=== PATIENT | female | born 1965 | race Two or more races ===

== ENCOUNTER → 2022-03-10 | Emergency (ER) | payer OTHER ==
[~2022-03-10] VITALS: Ht 172.7 cm; Wt 83.9 kg
[~2022-03-10] MED LIST: ASPirin 81 mg TAB PO ONE
[2022-03-10 10:00] VITALS: BP 128/87
[2022-03-10 10:28] LABS: Basophils # (auto) 0.1 10 ^3/uL (0-0.2); Basophils % (auto) 2.9 % (0.0-2.0); Eosinophils # (auto) 0.1 10 ^3/uL (0-0.8); Eosinophils % (auto) 1.3 % (0.0-7.0); Hematocrit 40.6 % (36.0-46.0); Hemoglobin 13.8 g/dL (12.2-16.2); Lymphocytes # (auto) 1.5 10 ^3/uL (0.4-5.4); Lymphocytes % (auto) 30.8 % (10.0-50.0); Mean Corpuscular Hemoglobin 29.2 pg (28.0-32.0); Mean Corpuscular Volume 85.8 fL (80.0-100.0); Monocytes # (auto) 0.6 10 ^3/uL (0-1.3); Monocytes % (auto) 12.3 % (0.0-12.0); Neutrophils # (auto) 2.6 10 ^3/uL (1.6-8.6); Neutrophils % (auto) 52.7 % (37.0-80.0); Red Blood Cells 4.73 10^6/uL (4.0-5.20); Red Cell Distribution Width 14.1 % (11.8-14.3); White Blood Cell 4.9 10^3/uL (4.4-10.8)
[2022-03-10 10:47] LABS: Albumin 3.9 g/dL (3.4-5.0); Calcium 9.2 mg/dL (8.5-10.1); Potassium 4.1 mmol/L (3.5-5.1)
[2022-03-10 10:51] LABS: BUN/Creatinine Ratio 9.3; Bilirubin, Total 0.5 mg/dL (0.2-1.0); Total Protein 8.2 g/dL (6.4-8.2)
== END | disposition home or self-care (01) ==
LOC: ER 10:00
DX: R07.89 Other chest pain (principal); I10 Essential (primary) hypertension
CPT/HCPCS: 36415; 80053; 84484; 85025; 93005

== ENCOUNTER → 2022-06-23 | Outpatient (CLI) | payer OTHER ==
[2022-06-23 10:26] LABS: Basophils # (auto) 0.1 10 ^3/uL (0-0.2); Basophils % (auto) 1.1 % (0.0-2.0); Eosinophils # (auto) 0.2 10 ^3/uL (0-0.8); Eosinophils % (auto) 3.5 % (0.0-7.0); Hematocrit 39.1 % (36.0-46.0); Hemoglobin 13.2 g/dL (12.2-16.2); Lymphocytes # (auto) 1.9 10 ^3/uL (0.4-5.4); Mean Corpuscular Hemoglobin 29.1 pg (28.0-32.0); Mean Corpuscular Hgb Conc. 33.8 g/dL (32.0-36.0); Monocytes # (auto) 0.4 10 ^3/uL (0-1.3); Monocytes % (auto) 6.3 % (0.0-12.0); Neutrophils # (auto) 4.1 10 ^3/uL (1.6-8.6); Neutrophils % (auto) 61.1 % (37.0-80.0); Red Blood Cells 4.54 10^6/uL (4.0-5.20); Red Cell Distribution Width 13.3 % (11.8-14.3); White Blood Cell 6.7 10^3/uL (4.4-10.8)
[2022-06-23 10:53] LABS: Albumin 3.9 g/dL (3.4-5.0); Calcium 9.5 mg/dL (8.5-10.1); Potassium 5.3 mmol/L (3.5-5.1)
[2022-06-23 10:58] LABS: BUN/Creatinine Ratio 23.5; Bilirubin, Total 0.4 mg/dL (0.2-1.0); Total Protein 7.5 g/dL (6.4-8.2)
== END | disposition home or self-care (01) ==
LOC: LAB 09:58
PROVIDERS: ATTEND Nurse Practitioner Family
DX: Z00.00 Encounter for general adult medical examination without abnormal findings (principal); I10 Essential (primary) hypertension; R73.9 Hyperglycemia, unspecified; E78.00 Pure hypercholesterolemia, unspecified
CPT/HCPCS: 36415; 80053; 80061; 83036; 84443; 85025

== ENCOUNTER 2023-03-09 01:56 | Emergency (ER) | payer SELFPAY ==
[~2023-03-09] VITALS: Ht 182.9 cm; Wt 100.0 kg
[2023-03-09] MEDS ORDERED: DONNATAL 5ml ORAL Elix (BELLADONNA ALK-PHENOBARB) PO ONE (02:45)
[2023-03-09] MEDS ORDERED: LIDOCAINE VISCOUS 2% 15ML UD PO ONE (02:45)
[2023-03-09] MEDS ORDERED: MAALOX PLUS or MAALOX 30 ML PO ONE (02:45)
[2023-03-09 03:24] LABS: Basophils # (auto) 0.1 10 ^3/uL (0-0.2); Basophils % (auto) 0.4 % (0.0-2.0); Eosinophils # (auto) 0.1 10 ^3/uL (0-0.8); Eosinophils % (auto) 0.5 % (0.0-7.0); Hematocrit 40.8 % (36.0-46.0); Hemoglobin 13.7 g/dL (12.2-16.2); Lymphocytes # (auto) 1.5 10 ^3/uL (0.4-5.4); Lymphocytes % (auto) 11.7 % (10.0-50.0); Mean Corpuscular Hemoglobin 29.2 pg (28.0-32.0); Mean Corpuscular Hgb Conc. 33.6 g/dL (32.0-36.0); Mean Corpuscular Volume 86.9 fL (80.0-100.0); Monocytes # (auto) 0.5 10 ^3/uL (0-1.3); Monocytes % (auto) 4.4 % (0.0-12.0); Neutrophils # (auto) 10.3 10 ^3/uL (1.6-8.6); Nucleated Red Blood Cells % 0.3 %; Red Cell Distribution Width 13.5 % (11.8-14.3); White Blood Cell 12.4 10^3/uL (4.4-10.8)
[2023-03-09 03:42] LABS: Albumin 3.9 g/dL (3.4-5.0); Calcium 8.5 mg/dL (8.5-10.1); Potassium 3.6 mmol/L (3.5-5.1)
[2023-03-09 03:45] LABS: BUN/Creatinine Ratio 25.7 (10.0-20.0); Bilirubin, Total 0.3 mg/dL (0.2-1.0); Total Protein 7.9 g/dL (6.4-8.2)
[2023-03-09 04:12] VITALS: BP 132/82
== END 2023-03-09 05:07 | disposition left against medical advice (07) ==
LOC: EDBD 01:56 → ER 01:56 → EDUNIT# 01:56 → ER 05:07
DX: K57.90 Diverticulosis of intestine, part unspecified, without perforation or abscess without bleeding (principal); I10 Essential (primary) hypertension; Z98.890 Other specified postprocedural states; Z41.1 Encounter for cosmetic surgery
CPT/HCPCS: 36415; 71045; 74176; 80053; 83690; 84484; 85025; 93005

== ENCOUNTER 2023-03-25 13:38 | Emergency (ER) | payer OTHER ==
[~2023-03-25] VITALS: Ht 172.7 cm; Wt 88.3 kg
[2023-03-25 14:15] VITALS: BP 163/100
[2023-03-25] MEDS ORDERED: VALSARTAN 80 MG TAB PO ONE ×2 (14:30→14:45)
[2023-03-25] MEDS ORDERED: VALS1TAB58 PO ×2 (14:38→14:39)
== END 2023-03-25 14:52 | disposition home or self-care (01) ==
LOC: ER 13:39
DX: I10 Essential (primary) hypertension (principal); Z76.0 Encounter for issue of repeat prescription; Z88.2 Allergy status to sulfonamides; Z98.890 Other specified postprocedural states

== ENCOUNTER → 2023-04-05 | Outpatient (CLI) | payer OTHER ==
[~2023-04-05] MED LIST changes: -ASPirin 81 mg TAB PO ONE; +VALS1TAB58 PO
[2023-04-05 12:15] LABS: Basophils # (auto) 0.1 10 ^3/uL (0-0.2); Basophils % (auto) 0.8 % (0.0-2.0); Eosinophils # (auto) 0.2 10 ^3/uL (0-0.8); Eosinophils % (auto) 2.3 % (0.0-7.0); Hematocrit 43.9 % (36.0-46.0); Hemoglobin 14.6 g/dL (12.2-16.2); Lymphocytes # (auto) 1.5 10 ^3/uL (0.4-5.4); Lymphocytes % (auto) 19.9 % (10.0-50.0); Mean Corpuscular Hemoglobin 29.2 pg (28.0-32.0); Mean Corpuscular Hgb Conc. 33.3 g/dL (32.0-36.0); Mean Corpuscular Volume 87.7 fL (80.0-100.0); Monocytes # (auto) 0.6 10 ^3/uL (0-1.3); Monocytes % (auto) 8.2 % (0.0-12.0); Neutrophils # (auto) 5.3 10 ^3/uL (1.6-8.6); Neutrophils % (auto) 68.8 % (37.0-80.0); Red Cell Distribution Width 14.3 % (11.8-14.3); White Blood Cell 7.6 10^3/uL (4.4-10.8)
[2023-04-05 13:24] LABS: Albumin 3.7 g/dL (3.4-5.0); Calcium 8.9 mg/dL (8.5-10.1); Potassium 4.1 mmol/L (3.5-5.1)
[2023-04-05 20:06] LABS: BUN/Creatinine Ratio 15.1 (10.0-20.0); Bilirubin, Total 0.4 mg/dL (0.2-1.0); Total Protein 7.9 g/dL (6.4-8.2)
== END | disposition home or self-care (01) ==
LOC: LAB 11:43
DX: Z00.01 Encounter for general adult medical examination with abnormal findings (principal); R73.9 Hyperglycemia, unspecified; E78.5 Hyperlipidemia, unspecified; I10 Essential (primary) hypertension; E66.3 Overweight
CPT/HCPCS: 36415; 80053; 80061; 82274; 83036; 84439; 84443; 85025

== ENCOUNTER 2024-10-31 17:57 | Emergency (ER) | payer SELFPAY ==
[~2024-10-31] VITALS: Ht 172.7 cm; Wt 85.9 kg
--- NOTE | 2024-10-31 18:47 | ED.PDOC ---
HPI Comments HPI: Poor Historian. 58-year-old female presents to emergency department for evaluation of hyp ertensive urgency. Patient denies any recent history of hypertension. She used to be on hypertension medications but is no longer needing it. However this past she started developing headache nausea vomiting shortness of breath. She checked her blood pressure at that time and it was 188/108. Patient has been having these symptoms for approximately a week but did not come to the hospital due to insurance plans change. Today at 4:00 p.m. she took a friend's medication clonidine once. Past Medical History: Borderline hyperlipidemia. Remote history of hypertension. Past Surgical History: Knee surgery, foot surgery, bunion, hernia repair Initial Vital Signs: Temp: 97.2F HR: 104 RR: 18 BP: 145/94 SpO2: 96% REVIEW OF SYSTEMS: CONSTITUTIONAL: Denies acute: fever, diaphoresis, chills, HEAD: Denies acute: photophobia Eyes: Denies acute: Double vision, vision loss, eye pain, eye discharge. EARS: Denies acute: tinnitus, hearing loss, ear discharge, ear pain, THROAT: Denies acute: sore throat, swelling, difficulty swallowing , pain with swallowing, change in voice. NECK: Denies acute: neck pain, neck swelling, stiff neck. HEART: Denies acute : chest pain, palpitations, LUNGS: Denies acute: wheezing, cough, hemoptysis ABDOMEN: Denies acute: abdominal pain, diarrhea, melena , hematemesis, hematochezia SKIN: Denies acute: rash, redness, lesions, itchiness. EXTREMITIES: Denies acute: calf pain, numbness, tingling, weakness, denies pain in extremity. Denies acute: Low back pain. Neuro: Denies acute: focal neurological deficit, motor or sensory focal neurological deficit, tremors, seizure like activity, confusion, dizziness, change in mental status, loss of bowel or bladder function, cauda equina like symptoms. : Denies acute: dysuria, hematuria, flank pain, increase in urinary frequency. PSYCH: Denies acute: hallucination, suicidal ideation, homicidal ideation. FEMALE: Denies acute: abnormal vaginal bleeding, foul odor, unusual discharge. PHYSICAL EXAM: General: no acute distress, awake and alert. Head: normocephalic, atraumatic. Neck: supple, trachea is midline, no swelling. Throat: Normal phonation. Eyes:, no erythema, no purulent discharge, no proptosis, no icterus. Heart: regular rate, regular rhythm, no significant murmur appreciated. Lungs: no apparent respiratory distress, Able to speak in full sentences. No wheezing, no rhonchi, no crackles. No stridors Clear to auscultation bilaterally. Abdomen: non tender to palpation, non distended, soft, no guarding, no rebound, + bowel sounds. Neuro: Awake, Alert, oriented to name, self, situation, follows commands GCS=15. Speech is normal. Skin: no petechia, no purpura, no cyanosis, non-pale, not jaundice. Lower extremities: --no - Pitting edema no deformity, no focal swelling, no calf TTP. Makes eye contact. moves all four extremities. Face: no apparent facial droop. Ambulating in the ED independently. Time Seen by MD: 18:40 Reviewed Notes: Nurses Notes, Medications, Allergies Allergies: Coded Allergies: Sulfa Antibiotics (Verified Allergy, Unknown, HIVES/ITCHING, 03/09/23) Home Meds Active Scripts Valsartan (Valsartan) 160 Mg Tab, 1 TAB PO DAILY, #14 TAB Prov:CÉSAR JACKSON 03/25/23 Information Source: Patient Past Medical History PAST MEDICAL HISTORY: HTN Surgical History: Hernia Repair LEGAL BILLING SPECIALIST History: No Pertinent LEGAL BILLING SPECIALIST History Family History Family History: Reviewed,noncontributory to illness Social History Smoker: Non-Smoker Alcohol: Denies ETOH Use Drugs: Denies Drug Use Lives In: Home Was a procedure done? Was a procedure done?: No CP Differential Dx Differential Diagnosis: N/A Differential Diagnosis: Other (DDX include renal disease, thyroid disease, electrolyte abnormality, increased salt intake, medications non-compliance, undiagnosed HTN, Hypertensive crisis, hypertensive urgency., drug toxicity.) X-Ray, Labs, Meds, VS Vital Signs Date Time Temp Pulse Resp B/P (MAP) Pulse Ox O2 Delivery O2 Flow Rate FiO2 11/01/24 01:28 98.5 90 12 147/97 (114) 95 98.5 10/31/24 21:45 88 16 147/98 (114) 98 10/31/24 20:18 142/87 10/31/24 20:11 98.7 95 18 142/87 (105) 98 98.7 10/31/24 20:11 95 18 98 Room Air* 0 21 10/31/24 18:20 97.2 104 18 145/94 (111) 96 Lab Test 10/31/24 21:30 10/31/24 19:55 10/31/24 19:09 10/31/24 18:45 Range/Units Influenza Type A Antigen Positive Negative Influenza Type B Antigen Negative Negative SARS-CoV-2 Antigen (Rapid) Negative NEGATIVE Troponin I High Sensitivity < 3 L < 3 L </=34 ng/L White Blood Count 8.5 4.4-10.8 10^3/uL Red Blood Count 4.81 4.0-5.20 10^6/uL Hemoglobin 14.8 12.2-16.2 g/dL Hematocrit 42.9 36.0-46.0 % Mean Corpuscular Volume 89.2 80.0-100.0 fL Mean Corpuscular Hemoglobin 30.8 28.0-32.0 pg Mean Corpuscular Hemoglobin Concent 34.6 32.0-36.0 g/dL Red Cell Distribution Width 13.3 11.8-14.3 % Platelet Count 350 140-450 10^3/uL Mean Platelet Volume 6.6 L 6.9-10.8 fL Neutrophils (%) (Auto) 87.1 H 37.0-80.0 % Lymphocytes (%) (Auto) 3.5 L 10.0-50.0 % Monocytes (%) (Auto) 8.4 0.0-12.0 % Eosinophils (%) (Auto) 0.2 0.0-7.0 % Basophils (%) (Auto) 0.8 0.0-2.0 % Neutrophils # (Auto) 7.4 1.6-8.6 10 ^3/uL Lymphocytes # (Auto) 0.3 L 0.4-5.4 10 ^3/uL Monocytes # (Auto) 0.7 0-1.3 10 ^3/uL Eosinophils # (Auto) 0 0-0.8 10 ^3/uL Basophils # (Auto) 0.1 0-0.2 10 ^3/uL Nucleated Red Blood Cells 0.1 % Sodium Level 131 L 136-145 mmol/L Potassium Level 4.3 3.5-5.1 mmol/L Chloride Level 97 L 98-107 mmol/L Carbon Dioxide Level 24 20-31 mmol/L Anion Gap 10 5-15 Blood Urea Nitrogen 12 9-23 mg/dL Creatinine 0.74 0.550-1.02 mg/dL Glomerular Filtration Rate Calc 94 >90 mL/min BUN/Creatinine Ratio 16.2 10.0-20.0 Serum Glucose 138 H 74-106 mg/dL Lactic Acid Level 1.8 0.4-2.0 mmol/L Calcium Level 10.3 8.7-10.4 mg/dL Total Bilirubin 0.5 0.2-1.0 mg/dL Aspartate Amino Transferase (AST) 19 13-40 U/L Alanine Aminotransferase (ALT) 20 7-40 U/L Alkaline Phosphatase 73 46-116 U/L B-Type Natriuretic Peptide 38.56 0-100 pg/mL Total Protein 7.7 5.7-8.2 g/dL Albumin 4.8 3.2-4.8 g/dL Lipase 26 12-53 U/L Urine Color Yellow Yellow Urine Clarity Clear Clear Urine pH 5.5 5.0-9.0 Urine Specific [place] 1.035 1.001-1.035 Urine Protein 1+ H Negative Urine Ketones 2+ H Negative Urine Blood 2+ H Negative /uL Urine Nitrite Negative Negative Urine Bilirubin Negative Negative Urine Urobilinogen Normal Negative mg/dL Urine Leukocyte Esterase 1+ Negative /uL Urine RBC 19 0 - 4 /hpf Urine Microscopic WBC 4 0-5 /HPF Urine Squamous Epithelial Cells Few <5 /hpf Urine Bacteria None seen None Seen /hpf Urine Mucus Moderate None Seen Urine Glucose Normal Normal mg/dL Current Medications Medications (Trade) Dose Ordered Sig/[facility] Route Start Time Stop Time Status Last Admin Aspirin 325 mg ONCE ONCE PO 10/31/24 18:45 10/31/24 18:46 DC 10/31/24 20:19 Ondansetron HCl (Zofran) 8 mg ONCE ONCE IV 10/31/24 18:45 10/31/24 18:46 DC 10/31/24 20:19 Ceftriaxone Sodium 50 ml @ 100 mls/hr ONCE ONCE IV 10/31/24 20:45 10/31/24 21:14 DC 10/31/24 21:46 PATIENT: FRANSISCA BAR ACCT: [id number] UNIT: [id number] : 1965 LOC: ER ROOM / BED: / AGE / SEX: 58 / F ADM STATUS: REG ER SERVICE [id number] ORDERING PHYSICIAN: VANESSA LEMOS DO PROCEDURE(s): HWOCT - HEAD WITHOUT CONTRAST REASON: sob/htn/ ORDER NUMBER(s): [id number], ACCESSION NUMBER(s): [id number] CLINICAL HISTORY: sob/htn/ TECHNIQUE: Helical imaging carried out from skull base to vertex without intravenous contrast. This exam was performed according to our departmental dose optimization program. Up-to-date CT equipment and radiation dose reduction techniques are utilized as appropriate. COMPARISON: None FINDINGS: The ventricles and subarachnoid spaces are normal in size and configuration. There is no midline shift or mass effect. The melendez white matter interfaces are maintained. The basal cisterns are patent. There is no evidence of acute intra cranial hemorrhage or extra-axial fluid collection. The mastoid air cells are well-aerated. There is trace paranasal sinus mucosal thickening IMPRESSION: No acute intracranial abnormality. ATED BY: ETD RAMOS MD DICTATED DATE/TIME: 10/31/241903 SIGNED BY: TED RAMOS MD SIGNED DATE/TIME: 10/31/241903 Images Reviewed?: Images reviewed and evaluated by me Time of 1ST Reevaluation: 23:24 Reevaluation 1ST: Improved Time of 2ND Reevaluation: 01:56 Reevaluation 2ND: Improved Patient Education/Counseling: Diagnosis, Treatment Family Education/Counseling: Other Comments Patient is outside the window for Tamiflu. Patient presented with the above HPI.--viral symptoms and hypertensive urgency--workup was initiated. patient was found with the above mentioned diagnosis. the following medications were ordered: please refer to order lists of meds and tests obtained by myself Dr. Lemos. Patient ED course and VS have been stabilized. Patient has been reassessed in the ED and remained in a stable condition. Pertinent incidental findings were discussed with the patient and/or family. Patient/family voices understanding and is agreeable with plan. Patient has been observed in the ED adequate length of time to insure improvement/stability. Escalation of care considered: Consideration of escalation to observation or admission Patient was DISCHARGED home in a stable condition. All the reports of any imaging studies that were ordered by myself were reviewed by myself. Departure 1 Departure Time of Disposition: 23:22 Impression: Primary Impression: Influenza A virus present Additional Impressions: Hypertensive urgency Urinary tract infection Disposition: HOME / SELF CARE / HOMELESS Condition: Stable Additional Instructions: Additional discharge instructions: You MUST follow-up with your primary care/family doctor in 1 to 2 days. If you are unable to see your primary care/family doctor, please return to our emergency room for re-assessment and re-evaluation in 1 to 2 days. Return to the emergency room here in our facility or to the nearest ER [facility] if your symptoms change or worsen. CONSULTATIONS: you MUST Follow-up for consultation as soon as possible with: cardiology in 1-2 days. Please call for appointment. You MUST call the consultants office yourself to make an appointment. You may need to arrange that through your insurance and/or your primary/family doctor. If you are unable to see the furniture sales consultant in 1 to 2 days, you must return to our emergency room (or any other ER of your choice) for re-assessment and re- evaluation. Adequate fluid hydration. Monitor blood pressure at home at least 3 times a day. You stated that you have lisinopril from previous treatment. You may restart that. You are contagious. Exercise good hygiene. Wear a mask. Discharged With: Self Critical Care Note Critical Care Time?: No Heart Score Heart Score: Heart Score Response (Comments) Value History Slightly Suspicious 0 EKG Normal 0 Age 45-64 1 Risk Factors 1 or 2 risk factors 1 Troponin Normal limit 0 Total 2 I personally scribed for VANESSA LEMOS DO ([email or web address]) on 10/31/24 at 20:23. Electronically submitted by Leeroy Grande ([email or web address]). VANESSA LEMOS DO Oct 31, 2024 18:47
--- NOTE | 2024-10-31 19:05 | DVH ---
CHEST RADIOGRAPH Indication: sob/htn/ Technique: Single frontal view of the chest was obtained COMPARISON: XY CHEST PORTABLE on DOS: 03/09/23 FINDINGS: Lines and Tubes: None Lungs: Clear Pleura: No effusion. No pneumothorax. Cardiomediastinal contours: Unremarkable Bones: Unremarkable IMPRESSION: No acute disease.
[2024-10-31 19:06] LABS: Urine Bacteria None Seen /hpf (None Seen)
--- NOTE | 2024-10-31 19:07 | DVH ---
CLINICAL HISTORY: sob/htn/ TECHNIQUE: Helical imaging carried out from skull base to vertex without intravenous contrast. This e xam was performed according to our departmental dose optimization program. Up-to-date CT equipment an d radiation dose reduction techniques are utilized as appropriate. COMPARISON: None FINDINGS: The ventricles and subarachnoid spaces are normal in size and configuration. There is no midline nika ft or mass effect. The melendez white matter interfaces are maintained. The basal cisterns are patent. Th ere is no evidence of acute intracranial hemorrhage or extra-axial fluid collection. The mastoid air cells are well-aerated. There is trace paranasal sinus mucosal thickening IMPRESSION: No acute intracranial abnormality.
[2024-10-31 19:15] LABS: Urine Blood 2+ /uL (Negative); Urine Clarity Clear (Clear); Urine Color Yellow (Yellow); Urine Mucus MODERATE (None Seen); Urine Protein, UAD 1+ (Negative); Urine Specific Gravity 1.035 (1.001-1.035); Urine Squamous Epithelial Cell FEW /hpf (<5); Urine Urobilinogen Normal (Negative); Urine WBC 4 /HPF (0-5); Urine pH 5.5 (5.0-9.0)
[2024-10-31 19:19] LABS: Basophils # (auto) 0.1 10 ^3/uL (0-0.2); Basophils % (auto) 0.8 % (0.0-2.0); Eosinophils # (auto) 0 10 ^3/uL (0-0.8); Eosinophils % (auto) 0.2 % (0.0-7.0); Hematocrit 42.9 % (36.0-46.0); Hemoglobin 14.8 g/dL (12.2-16.2); Lymphocytes # (auto) 0.3 10 ^3/uL (0.4-5.4); Lymphocytes % (auto) 3.5 % (10.0-50.0); Mean Corpuscular Hemoglobin 30.8 pg (28.0-32.0); Mean Corpuscular Hgb Conc. 34.6 g/dL (32.0-36.0); Mean Corpuscular Volume 89.2 fL (80.0-100.0); Monocytes # (auto) 0.7 10 ^3/uL (0-1.3); Monocytes % (auto) 8.4 % (0.0-12.0); Neutrophils # (auto) 7.4 10 ^3/uL (1.6-8.6); Neutrophils % (auto) 87.1 % (37.0-80.0); Nucleated Red Blood Cells % 0.1 %; Platelet Count (auto) 350 10^3/uL (140-450); Red Blood Cells 4.81 10^6/uL (4.0-5.20); Red Cell Distribution Width 13.3 % (11.8-14.3); White Blood Cell 8.5 10^3/uL (4.4-10.8)
[2024-10-31 20:11] VITALS: PULSE 95; RESP 18; O2SAT 98
[2024-10-31 20:14] LABS: Alanine Aminotransferase 20 U/L (7-40); Alkaline Phosphatase 73 U/L (46-116); Anion Gap 10 (5-15); Aspartate Aminotransferase 19 U/L (13-40); BUN/Creatinine Ratio 16.2 (10.0-20.0); Blood Urea Nitrogen 12 mg/dL (9-23); Calcium 10.3 mg/dL (8.7-10.4); Carbon Dioxide 24 mmol/L (20-31); Lipase 26 U/L (12-53); Potassium 4.3 mmol/L (3.5-5.1)
[2024-10-31 20:15] LABS: Bilirubin, Total 0.5 mg/dL (0.2-1.0); Total Protein 7.7 g/dL (5.7-8.2)
[2024-10-31 20:17] LABS: Albumin 4.8 g/dL (3.2-4.8); Chloride 97 mmol/L (98-107); Glucose 138 mg/dL (74-106); Sodium 131 mmol/L (136-145)
[2024-10-31] MEDS: NITROGLYCERIN 0.4 MG SL TAB SL ONE (20:18)
[2024-10-31] MEDS: ASPirin 325 MG TAB PO ONE (20:19)
[2024-10-31] MEDS: ONDANSETRON HCL 4 MG/2 ML VIAL IV ONE (20:19)
[2024-10-31] MEDS: cefTRIAXone 1GM/50ML D5W 50 ML IV ONE (21:46)
[2024-10-31 22:32] LABS: COVID19 ANTIGEN SOFIA FIA NEGATIVE (NEGATIVE)
[2024-10-31 22:34] LABS: Rapid Influenza B Negative (Negative)
[2024-10-31 22:36] LABS: Rapid Influenza A Positive (Negative)
[2024-11-01 02:50] VITALS: BP 137/98; PULSE 95; RESP 16; TEMP 98; O2SAT 92
== END 2024-11-01 02:56 | disposition home or self-care (01) ==
LOC: ER 17:57
DX: J10.1 Influenza due to other identified influenza virus with other respiratory manifestations (principal); I16.0 Hypertensive urgency; N39.0 Urinary tract infection, site not specified; E78.5 Hyperlipidemia, unspecified; R51.9 Headache, unspecified; Z20.822 Contact with and (suspected) exposure to COVID-19; Z79.899 Other long term (current) drug therapy; Z98.890 Other specified postprocedural states; Z88.2 Allergy status to sulfonamides
CPT/HCPCS: 36415; 70450; 71045; 80053; 81001; 83605; 83690; 83880; 84484; 85025; 87426; 87804; 96365; 96375; 99285; J0696; J2405